=== PATIENT | male | born 1995 | race Caucasian/White ===

== ENCOUNTER 2018-07-11 05:52 | Emergency (ER) | payer SELFPAY ==
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
[2018-07-11] MEDS ORDERED: HYDR25CA83 PO (06:16)
[2018-07-11 06:27] LABS: PLATELET COUNT, AUTOMATED 301 K/uL (150-450)
[2018-07-11 06:30] VITALS: BP 123/81
== END 2018-07-11 07:04 | disposition home or self-care (01) ==
LOC: ER 05:55
DX: F43.22 Adjustment disorder with anxiety (principal); F10.120 Alcohol abuse with intoxication, uncomplicated; Y90.7 Blood alcohol level of 200-239 mg/100 ml
CPT/HCPCS: 80320; 80329; 82040; 82247; 82310; 82374; 82435; 82565; 82947; 83735; 84075; 84132; 84155; 84295; 84450; 84460; 84520; 85025; 99283

== ENCOUNTER → 2018-07-11 | Outpatient (CLI) | payer SELFPAY ==
[~2018-07-11] MED LIST: HYDR25CA83 PO
== END ==
LOC: AMB 05:41
PROVIDERS: ATTEND Nurse Practitioner
DX: F41.9 Anxiety disorder, unspecified (principal); E86.0 Dehydration; F10.10 Alcohol abuse, uncomplicated
CPT/HCPCS: A0425; A0427

== ENCOUNTER 2018-09-29 15:00 | Emergency (ER) | payer OTHER ==
[2018-09-29 15:05] VITALS: BP 151/71
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
--- NOTE | 2018-09-29 15:55 | RADIOLOGY IMAGING REPORT ---
FACILITY: [facility] [place] PATIENT NAME: Chapin Cuevas : 1995 MR: [id number] V: [id number] EXAM DATE: ORDERING PHYSICIAN: LESLIE ADAMS TECHNOLOGIST: Location: [facility] Patient: Chapin Cuevas : 1995 Visit/Account:[id number] Date of Sevice: 09/29/2018 Exam type: L-SPINE >4 VIEWS History: Hip by falling tree, pain left side of lower back Comparison: None. Findings: There are five nonrib-bearing lumbar-type vertebral bodies present. There is no evidence of acute fr acture or subluxation. The disc spaces appear well-preserved IMPRESSION: 1. Unremarkable lumbar spine series. If patient's symptoms persist MR may be helpful Report Dictated By: Jeni Obregon MD at 09/29/2018 3:50 PM Report E-Signed By: Jeni Obregon MD at 09/29/2018 3:51 PM WSN:[email or web address]
--- NOTE | 2018-09-29 15:57 | RADIOLOGY IMAGING REPORT ---
FACILITY: [facility] PATIENT NAME: Chapin Cuevas : 1995 MR: [id number] V: [id number] EXAM DATE: ORDERING PHYSICIAN: LESLIE ADAMS TECHNOLOGIST: Location: [facility] Patient: Chapin Cuevas : 1995 Visit/Account:[id number] Date of Sevice: 09/29/2018 SHOULDER MIN 2 VIEWS RIGHT HISTORY: Trauma Additional history: None COMPARISON: None. FINDINGS: Osseous structures of the right shoulder girdle are intact. No evidence of fractures or dislocation. IMPRESSION: Normal study Report Dictated By: Brandon Cm MD at 09/29/2018 3:48 PM Report E-Signed By: Brandon Cm MD at 09/29/2018 3:51 PM WSN:[email or web address]
[2018-09-29] MEDS ORDERED: HYDR-385 PO (16:10)
[2018-09-29] MEDS ORDERED: DICL-195 PO (16:10)
[2018-09-29] MEDS ORDERED: CYCL10TA29 PO (16:10)
== END 2018-09-29 16:23 | disposition home or self-care (01) ==
LOC: ER 15:17
DX: S39.012A Strain of muscle, fascia and tendon of lower back, initial encounter (principal); S40.011A Contusion of right shoulder, initial encounter; W20.8XXA Other cause of strike by thrown, projected or falling object, initial encounter
CPT/HCPCS: 72120; 99284